=== PATIENT | male | born 1995 | race African-American/Black ===

== ENCOUNTER 2019-05-10 08:57 | Emergency (ER) | payer BC, OTHER ==
--- NOTE | 2019-05-10 11:25 | RAD ---
CHEST 1 VIEW: Date: 05/10/2019 INDICATION: Cough with chest soreness. COMPARISON: Prior exam dated 03/08/2012. FINDINGS: Lungs are clear. Heart size normal. No acute osseous abnormality evident. IMPRESSION: No acute cardiopulmonary abnormality. POS: [facility]
== END 2019-05-10 11:20 | disposition home or self-care (01) ==
LOC: ERS 08:57
DX: J06.9 Acute upper respiratory infection, unspecified (principal)
CPT/HCPCS: 71045

== ENCOUNTER 2019-11-10 17:31 | Emergency (ER) | payer BC, OTHER ==
[2019-11-12 12:27] LABS: SARS-CoV-2 MS2 Positive; SARS-CoV-2 N Gene Negative; SARS-CoV-2 S Gene Negative; SARS-CoV-2 orf1ab Negative
== END 2019-11-10 17:58 | disposition home or self-care (01) ==
LOC: ERS 17:31
DX: R06.02 Shortness of breath (principal); Z20.828 Contact with and (suspected) exposure to other viral communicable diseases
CPT/HCPCS: 87635; 99283; U0003

== ENCOUNTER 2022-06-26 08:44 | Emergency (ER) | payer BC, SELFPAY ==
[2022-06-26 09:54] LABS: Bilirubin Negative (Negative); Blood, Urine 2+ (Negative); Clarity Turbid (Clear); Glucose, Urine (Dipstick) Normal (Negative); Ketone, Urine 100 mg/dL (Negative); Leukocyte 500 Leu/uL (Negative); Nitrite Negative (Negative); Protein, Urine (Dipstick) 70 mg/dL (Neg-Trace); Specific Gravity, Urine 1.029 (1.002-1.036)
[2022-06-26 10:06] LABS: RBC/HPF 0-3 HPF (0-3); Squamous Epithelial 0-3 HPF (0-3)
[2022-06-26 10:07] LABS: Bacteria/HPF 1+ HPF (None Seen)
[2022-06-26] MEDS ORDERED: Ibuprofen 800 MG TAB ONE (10:25)
[2022-06-26] MEDS ORDERED: Acetaminophen 325 MG TAB ONE ×2 (10:26)
[2022-06-26] MEDS ORDERED: HYDROcodone/Acetaminophen 5/325 mg Tablet ONE (10:27)
[2022-06-26] MEDS ORDERED: cefTRIAXone\\ROCEPHIN 500 MG VIAL ONE (12:03)
[2022-06-26] MEDS ORDERED: Lidocaine 1% MPF 2 ML VIAL ONE (12:04)
[2022-06-26 19:50] LABS: Chlam.trachomatis by PCR,Urine DETECTED (NotDetected); GC N.gonorrhoeae PCR,UrineVOID DETECTED (NotDetected)
== END 2022-06-26 12:20 | disposition home or self-care (01) ==
LOC: ERS 08:44
DX: N50.811 Right testicular pain (principal); N45.1 Epididymitis; F17.210 Nicotine dependence, cigarettes, uncomplicated
CPT/HCPCS: 76870; 81003; 81015; 87491; 87591; 93976; 96372; J0696

== ENCOUNTER 2022-06-30 20:39 | Emergency (ER) | payer SELFPAY ==
[~2022-06-30 20:39] MED LIST: Iopamidol-370 76% 500 ML 1 ML ONE
[2022-06-30 21:06] LABS: Bacteria/HPF None Seen HPF (None Seen); Bilirubin Negative (Negative); Blood, Urine Trace (Negative); Clarity Clear (Clear); Glucose, Urine (Dipstick) Normal (Negative); Ketone, Urine Negative (Negative); Leukocyte 250 Leu/uL (Negative); Nitrite Negative (Negative); Protein, Urine (Dipstick) 20 mg/dL (Neg-Trace); RBC/HPF 0-3 HPF (0-3); Specific Gravity, Urine 1.034 (1.002-1.036); Squamous Epithelial 0-3 HPF (0-3); WBC/HPF 21-50 HPF (0-3)
[2022-06-30 21:13] LABS: #Eosinphils 0.3 thou/uL (0.0-0.7); #Lymphocytes 3.4 thou/uL (1.20-3.40); #Monocytes 0.7 thou/uL (0.11-0.59); #Neutrophils 4.2 thou/uL (1.40-6.50); %Basophils 0.4 % (0.0-1.0); %Eosinophils 3.3 % (0.0-10.0); %Lymphocytes 39.4 % (21.0-51.0); %Monocytes 8.6 % (0.0-10.0); %Neutrophils 48.3 % (42.0-75.0); Hemoglobin 15.3 g/dL (14.0-18.0); Mean Corpuscular HGB CONC 33.2 g/dL (32.0-36.0); Mean Corpuscular Hemoglobin 32.1 pg (27.0-31.0); Mean Corpuscular Volume 96.7 fl (78.0-98.0); Mean Platelet Volume 7.1 fL (7.4-10.4); Platelet Count 267 10x3/uL (130-400); RBC Distribution Width 11.3 % (11.5-14.5); Red Blood Cell (RBC) Count 4.77 mill/uL (4.70-6.10); White Blood Cell (WBC) Count 8.6 10x3/uL (4.8-10.8)
[2022-06-30 21:35] LABS: ALT (SGPT) 11 U/L (8-55); AST (SGOT) 15 U/L (5-34); Albumin 3.9 g/dL (3.5-5.0); Alkaline Phosphatase 65 U/L (40-110); Anion Gap 14 mmol/L (10-20); BUN (Urea Nitrogen) 13 mg/dL (8.9-20.6); Bilirubin, Total 0.2 mg/dL (0.2-1.2); Calc. Creatinine Clearance 0 mL/min (70-130); Calcium 9.1 mg/dL (7.8-10.44); Carbon Dioxide 23 mmol/L (22-29); Chloride 104 mmol/L (98-107); Estimated GFR 109; Globulin 3.3 g/dL (2.4-3.5); Glucose 87 mg/dL (70-105); Potassium 3.7 mmol/L (3.5-5.1); Protein, Total 7.2 g/dL (6.0-8.3); Sodium 137 mmol/L (136-145)
[2022-06-30] MEDS ORDERED: Ondansetron PF 4 MG/2 ML Vial ONE (22:12)
[2022-06-30] MEDS ORDERED: Morphine 4 MG/ML VIAL ONE (22:12)
== END 2022-06-30 23:45 | disposition home or self-care (01) ==
LOC: ERS 20:39
DX: R10.31 Right lower quadrant pain (principal); F17.210 Nicotine dependence, cigarettes, uncomplicated
CPT/HCPCS: 36415; 74177; 80053; 81003; 81015; 85025; 96374; 96375; J2270; J2405; Q9967

== ENCOUNTER 2022-09-01 08:28 | Emergency (ER) | payer SELFPAY | END 2022-09-01 09:05 | disposition home or self-care (01) | LOC: ERS 08:28 | DX: H10.9 Unspecified conjunctivitis (principal) | CPT/HCPCS: 99283 ==

== ENCOUNTER 2023-09-02 18:02 | Emergency (ER) | payer SELFPAY | END 2023-09-02 23:17 | disposition home or self-care (01) | LOC: ERS 18:02 | DX: J20.9 Acute bronchitis, unspecified (principal); F17.290 Nicotine dependence, other tobacco product, uncomplicated | CPT/HCPCS: 99284 ==

== ENCOUNTER 2023-10-05 16:01 | Emergency (ER) | payer OTHER, SELFPAY | END 2023-10-05 16:41 | disposition home or self-care (01) | LOC: ERS 16:01 | DX: R00.2 Palpitations (principal); F17.210 Nicotine dependence, cigarettes, uncomplicated | CPT/HCPCS: 93005 ==